=== PATIENT | male | born 1950 | race Caucasian/White ===

== ENCOUNTER 2016-12-01 14:41 | Inpatient (IN) | payer OTHER ==
[2016-12-01 17:01] VITALS: BMI 22.8
--- NOTE | 2016-12-01 18:32 | HP ---
CIWA Score - CIWA Score Nausea/Vomitin Muscle Tremors: 3 Anxiety: 3 Agitation: 3 Paroxysmal Sweats: 2 Orientation: 0-Oriented Tacttile Disturbances: 2-Mild Itch/Numbness/Burn Auditory Disturbances: 2-Mild Harshness/Frighten Visual Disturbances: 2-Mild Sensitivity Headache: 2-Mild CIWA-Ar Total Score: 22 Admission ROS BHS - HPI Chief Complaint: i need help to stop drinking alcohol Allergies/Adverse Reactions: Allergies Allergy/AdvReac Type Severity Reaction Status Date / Time No Known Allergies Allergy Verified 12/01/16 17:48 History of Present Illness: this 65 years old male with alcohol dependence,seeking detox,,never been in detox before fell 2 days ago seen at [facility] ,sent home,receiving medication at [facility],refer for detox depression,anxiety nicotine dependence weight loss contusion of right chest wall and right thigh Exam Limitations: No Limitations - Ebola screening Have you traveled outside of the country in the last 21 days: No Have you had contact with anyone from an Ebola affected area: No Have you been sick,other than usual withdrawal symptoms: No Do you have a fever: No - Review of Systems Constitutional: Loss of Appetite, Malaise, Night Sweats, Changes in sleep, Weakness, Unintentional Wgt. Loss EENT: reports: Nose Congestion Respiratory: reports: No Symptoms reported Cardiac: reports: No Symptoms Reported GI: reports: Nausea, Vomiting, Abdominal cramping : reports: No Symptoms Reported Musculoskeletal: reports: Back Pain, Muscle Pain Integumentary: reports: Dryness Neuro: reports: Headache, Tremors Endocrine: reports: No Symptoms Reported Hematology: reports: No Symptoms Reported Psychiatric: reports: No Sypmtoms Reported, Judgement Intact, Mood/Affect Appropiate, Orientated x3, Depressed (insomnia) Patient History - Patient Medical History Hx Asthma: No Hx Chronic Obstructive Pulmonary Disease (COPD): No Hx Cardiac Disorders: No Hx Hypertension: No Hx Seizures: No Hx Diabetes: No Hx Gastrointestinal Disorders: No Hx Genitourinary Disorders: No Hx Sexually Transmitted Disorders: No Hx Renal Disease (ESRD): No Hx Depression: No Hx Suicide Attempt: No Hx Schizophrenia: No - Patient Surgical History Past Surgical History: No Hx Neurologic Surgery: No Hx Cataract Extraction: No Hx Cardiac Surgery: No Hx Lung Surgery: No Hx Breast Surgery: No Hx Breast Biopsy: No Hx Abdominal Surgery: No Hx Appendectomy: No Hx Cholecystectomy: No Hx Genitourinary Surgery: No Hx Section: No Hx Orthopedic Surgery: No Anesthesia Reaction: No - PPD History Previous Implant?: No Implanted On Prior [facility] Admission?: No - Smoking Cessation Smoking history: Current every day smoker Have you smoked in the past 12 months: Yes Aproximately how many cigarettes per day: 5 Hx Chewing Tobacco Use: No Initiated information on smoking cessation: Yes - Substance & Tx. History Hx Alcohol Use: Yes Hx Substance Use: No Substance Use Type: Alcohol Hx Substance Use Treatment: No - Substances Abused Alcohol Route: Oral Frequency: Daily Amount used: vodka 1 pint Age of first use: 29 Date of Last Use: 11/29/16 Family Disease History - Family Disease History Family History: Denies Admission Physical Exam BHS - Vital Signs Vital Signs: Vital Signs - 24 hr 12/01/16 17:00 Temperature 97.5 F L Pulse Rate 92 H Respiratory 18 Rate Blood Pressure 124/81 - Physical General Appearance: Yes: Moderate Distress, Tremorous, Irritable, Sweating, Anxious HEENTM: Yes: Normocephalic, CORBY, Pharynx Normal Respiratory: Yes: Lungs Clear, Normal Breath Sounds, No Respiratory Distress Neck: Yes: Within Normal Limits, Supple, Trachea in good position Breast: Yes: Within Normal Limits Cardiology: Yes: Within Normal Limits, Regular Rhythm, Regular Rate, S1, S2, Tachycardia S Breath Alcohol Content Breath Alcohol Content: 0 Urine Drug Screen - Results Drug Screen Negative: No Urine Drug Screen Results: BZO-Benzodiazepines
--- NOTE | 2016-12-01 18:45 | HP ---
CIWA Score - CIWA Score Nausea/Vomitin Muscle Tremors: 3 Anxiety: 3 Agitation: 3 Paroxysmal Sweats: 2 Orientation: 0-Oriented Tacttile Disturbances: 2-Mild Itch/Numbness/Burn Auditory Disturbances: 2-Mild Harshness/Frighten Visual Disturbances: 2-Mild Sensitivity Headache: 2-Mild CIWA-Ar Total Score: 22 Admission ROS BHS - HPI Chief Complaint: i am here to stop drinking alcohol Allergies/Adverse Reactions: Allergies Allergy/AdvReac Type Severity Reaction Status Date / Time No Known Allergies Allergy Verified 12/01/16 17:48 History of Present Illness: this 65 years old male with alcohol dependence,seeking detox from alcohol,never have tratment before, fell on 11/29/16 seen in [facility] ,sent home refer for detox no significant period of sobriety Exam Limitations: No Limitations - Ebola screening Have you traveled outside of the country in the last 21 days: No Have you had contact with anyone from an Ebola affected area: No Have you been sick,other than usual withdrawal symptoms: No Do you have a fever: No - Review of Systems Constitutional: Loss of Appetite, Malaise, Night Sweats, Changes in sleep, Weakness, Unintentional Wgt. Loss EENT: reports: Nose Congestion Respiratory: reports: No Symptoms reported Cardiac: reports: Palpitations GI: reports: Nausea, Poor Appetite, Vomiting, Abdominal cramping : reports: No Symptoms Reported Musculoskeletal: reports: Back Pain, Muscle Pain Integumentary: reports: Dryness Neuro: reports: Headache, Tremors Endocrine: reports: No Symptoms Reported Hematology: reports: No Symptoms Reported Psychiatric: reports: No Sypmtoms Reported, Judgement Intact, Mood/Affect Appropiate, Orientated x3 Patient History - Patient Medical History Hx Anemia: No Hx Asthma: No Hx Chronic Obstructive Pulmonary Disease (COPD): No Hx Cancer: No Hx Cardiac Disorders: No Hx Congestive Heart Failure: No Hx Hypertension: No Hx Pacemaker: No HX Cerebrovascular Accident: No Hx Seizures: No Hx Dementia: No Hx Diabetes: No Hx Gastrointestinal Disorders: No Hx Liver Disease: No Hx Genitourinary Disorders: No Hx Sexually Transmitted Disorders: No Hx Renal Disease (ESRD): No Hx Thyroid Disease: No Hx Human Immunodeficiency Virus (HIV): No (never been tested) Hx Hepatitis C: No Hx Depression: No Hx Suicide Attempt: No Hx Bipolar Disorder: No Hx Schizophrenia: No Other Medical History: no suicidal,no homicidal - Patient Surgical History Past Surgical History: No Hx Neurologic Surgery: No Hx Cataract Extraction: No Hx Cardiac Surgery: No Hx Lung Surgery: No Hx Breast Surgery: No Hx Breast Biopsy: No Hx Abdominal Surgery: No Hx Appendectomy: No Hx Cholecystectomy: No Hx Genitourinary Surgery: No Hx Section: No Hx Orthopedic Surgery: No Anesthesia Reaction: No - PPD History Previous Implant?: Yes Documented Results: Negative w/o proof Implanted On Prior [facility] Admission?: No PPD to be Administered?: Yes - Smoking Cessation Smoking history: Current every day smoker Have you smoked in the past 12 months: Yes Aproximately how many cigarettes per day: 5 Hx Chewing Tobacco Use: No Initiated information on smoking cessation: Yes 'Breaking Loose' booklet given: 12/01/16 - Substance & Tx. History Hx Alcohol Use: Yes Hx Substance Use: No Substance Use Type: Alcohol Hx Substance Use Treatment: No - Substances Abused Alcohol Route: Oral Frequency: Daily Amount used: vodka 1 pint Age of first use: 29 Date of Last Use: 11/29/16 Family Disease History - Family Disease History Family History: Denies Admission Physical Exam S - Vital Signs Vital Signs: Vital Signs - 24 hr 12/01/16 17:00 Temperature 97.5 F L Pulse Rate 92 H Respiratory 18 Rate Blood Pressure 124/81 - Physical General Appearance: Yes: Moderate Distress, Tremorous, Irritable, Sweating, Anxious HEENTM: Yes: Normal ENT Inspection, [place], Pharynx Normal Respiratory: Yes: Lungs Clear, Normal Breath Sounds, No Respiratory Distress Neck: Yes: No masses,lesions,Nodules, Supple, Trachea in good position Breast: Yes: Within Normal Limits Cardiology: Yes: Within Normal Limits, Regular Rhythm, Regular Rate, S1, S2 Abdominal: Yes: Normal Bowel Sounds, Non Tender, Flat, Soft Genitourinary: Yes: Within Normal Limits Back: Yes: Muscle Spasm Musculoskeletal: Yes: Back pain, Muscle Pain Extremities: Yes: Normal Range of Motion, Tremors Neurological: Yes: cabin outfitter II-XII NML intact, Fully Oriented, Alert, Motor Strength 5/5 Integumentary: Yes: Dry Lymphatic: Yes: Within Normal Limits - Diagnostic (1) Alcohol dependence with uncomplicated withdrawal Current Visit: Yes Status: Acute (2) Depression Current Visit: Yes Status: Acute (3) Insomnia Current Visit: Yes Status: Acute (4) History of fall Current Visit: Yes Status: Acute (5) Contusion of right chest wall Current Visit: Yes Status: Acute (6) Contusion of right thigh Current Visit: Yes Status: Acute (7) Nicotine dependence Current Visit: Yes Status: Acute (8) Weight loss Current Visit: Yes Status: Acute Cleared for Admission [facility] - Detox or Rehab [facility] Level of Care: Medically Managed Detox Regimen/Protocol: Librium [facility] Breath Alcohol Content Breath Alcohol Content: 0 Urine Drug Screen - Results Drug Screen Negative: No Urine Drug Screen Results: BZO-Benzodiazepines
[2016-12-01] MEDS ORDERED: MAGNESIUM HYDROX 2400MG/30ML ORAL SUSPENSION 30 ML CUP PO PRN (19:04)
[2016-12-01] MEDS ORDERED: guaiFENesin/D-METHORPHAN HB 10 ML UNIT-DOSE CUPS PO PRN (19:04)
[2016-12-01] MEDS ORDERED: MAGNESIUM CITRATE 300 ML BOTTLE PO PRN (19:04)
[2016-12-01] MEDS ORDERED: MAG HYDROX/AL HYDROX/SIMETH 30 ML UNIT-DOSE CUP PO PRN (19:04)
[2016-12-01] MEDS ORDERED: LOPERAMIDE HCL 2 MG CAPSULE PO PRN (19:04)
[2016-12-01] MEDS ORDERED: diphenhydrAMINE HCL 50 MG CAPSULE PO PRN (19:04)
[2016-12-01] MEDS ORDERED: ACETAMINOPHEN 325 MG TABLET (FP) PO PRN (19:04)
[2016-12-01] MEDS ORDERED: chlordiazePOXIDE HCL 25 MG CAPSULE PO PRN (19:04)
[2016-12-01] MEDS ORDERED: IBUPROFEN 400 MG TABLET (FP) PO PRN (19:04)
[2016-12-01] MEDS ORDERED: hydrOXYzine PAMOATE 50 MG CAPSULE (FP) PO PRN (19:04)
[2016-12-01] MEDS ORDERED: chlordiazePOXIDE HCL 25 MG CAPSULE PO ONE (19:04)
[2016-12-01] MEDS ORDERED: P-EPHED 60MG/TRIPROLIDI 2.5MG TABLET PO PRN (19:04)
[2016-12-01] MEDS ORDERED: MENTHOL/PHENOL 1 EACH UD MM PRN (19:04)
[2016-12-01 22:07] LABS: URINE APPEARANCE CLEAR; URINE BILIRUBIN NEGATIVE (NEGATIVE); URINE BLOOD NEGATIVE (NEGATIVE); URINE COLOR YELLOW; URINE GLUCOSE (UA) NEGATIVE (NEGATIVE); URINE KETONE NEGATIVE (NEGATIVE); URINE LEUK ESTERASE NEGATIVE (NEGATIVE); URINE NITRITE NEGATIVE (NEGATIVE); URINE PROTEIN NEGATIVE (NEGATIVE); URINE UROBILINOGEN NEGATIVE mg/dL (0.2-1.0)
[2016-12-01] MEDS: chlordiazePOXIDE HCL 25 MG CAPSULE PO SCH (22:25)
[2016-12-01] MEDS: THIAMINE HCL 100 MG TABLET (FP) PO SCH (22:25)
[2016-12-02] MEDS: chlordiazePOXIDE HCL 25 MG CAPSULE PO SCH ×4 (06:09→22:28)
[2016-12-02 10:00] LABS: MCH 37.2 pg (25.7-33.7); MCHC 34.1 g/dl (32.0-35.9); MEAN CELL VOLUME 109.3 fl (80-96); MEAN PLT VOLUME 7.8 fl (7.5-11.1); PLATELET COUNT 369 K/MM3 (134-434); RDW 12.7 % (11.9-15.9); WHITE BLOOD COUNT 8.6 K/mm3 (4.0-10.0)
[2016-12-02 10:12] LABS: ALBUMIN 3.4 g/dl (3.4-5.0); ANION GAP 8 (8-16); CALCIUM 9.6 mg/dL (8.5-10.1); CO2 29 mmol/L (21-32); CREATININE 1.5 mg/dL (0.7-1.3); GLUCOSE,RANDOM 89 mg/dL (74-106); SGOT/AST 17 U/L (15-37); SGPT/ALT 38 U/L (12-78)
[2016-12-02 10:14] LABS: ALK PHOS 67 U/L (45-117); BILIRUBIN,TOTAL 1.4 mg/dL (0.2-1.0); TOT PROT 6.4 g/dl (6.4-8.2)
[2016-12-02] MEDS: PRENATAL VITAMINS W/ FOLIC ACID TABLET (FP) PO SCH (10:35)
[2016-12-02] MEDS: NICOTINE 14 MG/24 HOURS TOPICAL PATCH TD SCH (10:35)
--- NOTE | 2016-12-02 11:15 | EKG ---
Test Reason : Blood Pressure : / mmHG Vent. Rate : 093 BPM Atrial Rate : 093 BPM P-R Int : 154 ms QRS Dur : 076 ms QT Int : 346 ms P-R-T Axes : 080 064 067 degrees QTc Int : 430 ms SINUS RHYTHM WITH PREMATURE SUPRAVENTRICULAR COMPLEXES SEPTAL INFARCT , AGE UNDETERMINED ABNORMAL ECG NO PREVIOUS ECGS AVAILABLE Confirmed by JATIN GARCIA MD ([id number]) on 12/02/2016 11:15:08 AM Referred By: Confirmed By:JATIN GARCIA MD
--- NOTE | 2016-12-02 11:18 | CONSULT ---
[facility] Psychiatric Consult - Data Date of interview: 12/02/16 Admission source: [facility] Identifying data: This is 65 years old mexican speaking male with no psychiatric hospitalization history intoxiucated with: Alcohol and Nicotine Substance Abuse History: - Smoking Cessation. Smoking history: Current every day smoker. Have you smoked in the past 12 months: Yes. Aproximately how many cigarettes per day: 5. Hx Chewing Tobacco Use: No. Initiated information on smoking cessation: Yes. 'Breaking Loose' booklet given: 12/01/16. - Substance & Tx. History. Hx Alcohol Use: Yes. Hx Substance Use: No. Substance Use Type : Alcohol. Hx Substance Use Treatment: No. - Substances Abused. Alcohol. Route: Oral. Frequency: Daily. Amount used: vodka 1 pint. Age of first use: 29. Date of Last Use: 11/29/16 Medical History: Weight loss, Right chest aria cotussion history Psychiatric History: Denies past psychiatric history Physical/Sexual Abuse/Trauma History: Denies Additional Comment: Observation. Detox Unit Care Protocol Mental Status Exam - Mental Status Exam Alert and Oriented to: Person Cognitive Function: Fair Patient Appearance: Unkempt Mood: Anxious Affect: Flat Patient Behavior: Cooperative Speech Pattern: Delayed Voice Loudness: Normal Thought Process: Circumstantial Thought Disorder: Being Controlled Hallucinations: Denies Suicidal Ideation: Denies Homicidal Ideation: Denies Insight/Judgement: Fair Sleep: Difficulty falling asleep Appetite: Weight loss Muscle strength/Tone: Normal Gait/Station: Normal Additional Comments: Observation. Detox Unit Care Protocol Psychiatric Findings - Problem List ([place] 1, 2,3) (1) Alcohol dependence with uncomplicated withdrawal Current Visit: Yes Status: Acute (2) Depression Current Visit: Yes Status: Acute (3) Nicotine dependence Current Visit: Yes Status: Acute (4) Drug-induced mood disorder Current Visit: Yes Status: Suspected - Initial Treatment Plan Initial Treatment Plan: Observation. Detox Unit Care Protocol
[2016-12-02] MEDS ORDERED: PNEUMOC 13-VAL CONJ-DIP CRM/PF 0.5 ML DISP.SYRIN IM ONE (12:00)
[2016-12-02] MEDS ORDERED: PNEUMOCOCCAL 23 VACCINE 0.5 ML VIAL IM ONE (12:30)
--- NOTE | 2016-12-02 12:53 | PN ---
S CIWA - CIWA Score Nausea/Vomitin Muscle Tremors: 4-Moderate,w/Arms Extend Anxiety: 3 Agitation: 1-Slight > Activity Paroxysmal Sweats: No Perspiration Orientation: 2-Disoriented Date<2 days Tacttile Disturbances: 0-None Auditory Disturbances: 2-Mild Harshness/Frighten Visual Disturbances: 2-Mild Sensitivity Headache: 3-Moderate CIWA-Ar Total Score: 19 BHS Progress Note (SOAP) Subjective: Interrupted sleep, Tremors, H/A, Body Aches. Objective: PT. A & O X 2 (DISORIENTED ABOUT DAY / DATE). NO ACUTE DISTRESS. PT. DENIES CHEST PAIN. 12/02/16 12:50 Vital Signs Temperature 98.0 F 12/02/16 06:36 Pulse Rate 70 12/02/16 06:36 Respiratory Rate 18 12/02/16 06:36 Blood Pressure 148/96 12/02/16 06:36 O2 Sat by Pulse Oximetry (%) Laboratory Tests 12/01/16 12/02/16 12/02/16 21:45 07:00 07:00 WBC 8.6 RBC 3.03 L Hgb 11.3 L Hct 33.2 L MCV 109.3 H MCH 37.2 H MCHC 34.1 RDW 12.7 Plt Count 369 MPV 7.8 Sodium 140 Potassium 4.8 Chloride 103 Carbon Dioxide 29 Anion Gap 8 BUN 28 H Creatinine 1.5 H Creat Clearance w eGFR 46.82 Random Glucose 89 Calcium 9.6 Total Bilirubin 1.4 H AST 17 ALT 38 Alkaline Phosphatase 67 Total Protein 6.4 Albumin 3.4 Urine Color Yellow Urine Appearance Clear Urine pH 5.0 Urine Protein Negative Urine Glucose (UA) Negative Urine Ketones Negative Urine Blood Negative Urine Nitrite Negative Urine Bilirubin Negative Urine Urobilinogen Negative Ur Leukocyte Esterase Negative LABS NOTED. Assessment: 12/02/16 12:51 WITHDRAWAL SYMPTOMS. Plan: CONTINUE DETOX. FEOSOL, 325 MG PO BIDWM. D/C MAGNESIUM-CONTAINING MEDS. REPEAT CBC AND BMP ON 12/04/2016 FOR ABNORMAL ADMISSION VALUES.
[2016-12-02] MEDS: FERROUS SO4 325 MG TABLET (FP) PO SCH (17:18)
[2016-12-02] MEDS: THIAMINE HCL 100 MG TABLET (FP) PO SCH (22:28)
[2016-12-03] MEDS: chlordiazePOXIDE HCL 25 MG CAPSULE PO SCH ×3 (05:30→17:49)
[2016-12-03] MEDS: FERROUS SO4 325 MG TABLET (FP) PO SCH ×2 (07:50→17:49)
[2016-12-03] MEDS: PRENATAL VITAMINS W/ FOLIC ACID TABLET (FP) PO SCH (10:31)
[2016-12-03] MEDS: NICOTINE 14 MG/24 HOURS TOPICAL PATCH TD SCH (10:33)
--- NOTE | 2016-12-03 12:02 | PN ---
S CIWA - CIWA Score Nausea/Vomitin Muscle Tremors: 2 Anxiety: 2 Agitation: 2 Paroxysmal Sweats: 2 Orientation: 0-Oriented Tacttile Disturbances: 2-Mild Itch/Numbness/Burn Auditory Disturbances: 0-None Visual Disturbances: 0-None Headache: 0-None Present CIWA-Ar Total Score: 12 S Progress Note (SOAP) Subjective: interrupted sleep,sweats, lbp Objective: 12/03/16 11:59 Vital Signs Temperature 97.3 F L 12/03/16 10:26 Pulse Rate 71 12/03/16 10:26 Respiratory Rate 18 12/03/16 10:26 Blood Pressure 125/87 12/03/16 10:26 O2 Sat by Pulse Oximetry (%) Laboratory Tests 12/01/16 12/02/16 12/02/16 21:45 07:00 07:00 WBC 8.6 RBC 3.03 L Hgb 11.3 L Hct 33.2 L MCV 109.3 H MCH 37.2 H MCHC 34.1 RDW 12.7 Plt Count 369 MPV 7.8 Sodium 140 Potassium 4.8 Chloride 103 Carbon Dioxide 29 Anion Gap 8 BUN 28 H Creatinine 1.5 H Creat Clearance w eGFR 46.82 Random Glucose 89 Calcium 9.6 Total Bilirubin 1.4 H AST 17 ALT 38 Alkaline Phosphatase 67 Total Protein 6.4 Albumin 3.4 Urine Color Yellow Urine Appearance Clear Urine pH 5.0 Ur Specific [place] 1.025 Urine Protein Negative Urine Glucose (UA) Negative Urine Ketones Negative Urine Blood Negative Urine Nitrite Negative Urine Bilirubin Negative Urine Urobilinogen Negative Ur Leukocyte Esterase Negative RPR Titer 12/02/16 07:00 WBC RBC Hgb Hct MCV MCH MCHC RDW Plt Count MPV Sodium Potassium Chloride Carbon Dioxide Anion Gap BUN Creatinine Creat Clearance w eGFR Random Glucose Calcium Total Bilirubin AST ALT Alkaline Phosphatase Total Protein Albumin Urine Color Urine Appearance Urine pH Ur Specific [place] Urine Protein Urine Glucose (UA) Urine Ketones Urine Blood Urine Nitrite Urine Bilirubin Urine Urobilinogen Ur Leukocyte Esterase RPR Titer Nonreactive pt aox3 in nad ambulating c/o rt back pain Assessment: 12/03/16 12:00 withdrawal sx's lbp Plan: cont. detox increase fluids analgesic balm
[2016-12-03] MEDS: chlordiazePOXIDE 5 MG CAPSULE PO SCH (22:24)
[2016-12-03] MEDS: THIAMINE HCL 100 MG TABLET (FP) PO SCH (22:24)
[2016-12-04] MEDS: chlordiazePOXIDE 5 MG CAPSULE PO SCH ×3 (06:04→17:19)
[2016-12-04] MEDS: FERROUS SO4 325 MG TABLET (FP) PO SCH ×2 (07:44→17:19)
[2016-12-04] MEDS: PRENATAL VITAMINS W/ FOLIC ACID TABLET (FP) PO SCH (10:32)
[2016-12-04] MEDS: NICOTINE 14 MG/24 HOURS TOPICAL PATCH TD SCH (10:34)
[2016-12-04 10:42] LABS: BASOPHIL 0.5 % (0-2.0); EOSINOPHIL 1.5 % (0-4.5); MCH 37.3 pg (25.7-33.7); MCHC 34.5 g/dl (32.0-35.9); MEAN PLT VOLUME 7.8 fl (7.5-11.1); NEUTROPHILS 55.8 % (42.8-82.8); PLATELET COUNT 382 K/MM3 (134-434); RDW 12.6 % (11.9-15.9); WHITE BLOOD COUNT 8.4 K/mm3 (4.0-10.0)
[2016-12-04 11:04] LABS: ANION GAP 9 (8-16); CALCIUM 9.4 mg/dL (8.5-10.1); CO2 27 mmol/L (21-32); CREATININE 1.3 mg/dL (0.7-1.3); GLUCOSE,RANDOM 97 mg/dL (74-106)
[2016-12-04 12:18] LABS: ANISOCYTOSIS 2+; MACROCYTOSIS 1+; PLATELET COMMENT2 NO CLOTTING DETECTED; PLATELET COMMENT3 FEW LARGE PLTS; PLATELET ESTIMATE ADEQUATE (NORMAL)
--- NOTE | 2016-12-04 15:16 | PN ---
S Progress Note (SOAP) Subjective: Interrupted sleep, Body aches, Tremors. Objective: PT. A & O X 3, OBSERVED AMBULATING ON UNIT. NO ACUTE DISTRESS. 12/04/16 15:14 Vital Signs Temperature 98.1 F 12/04/16 10:10 Pulse Rate 89 12/04/16 10:10 Respiratory Rate 18 12/04/16 10:10 Blood Pressure 126/94 12/04/16 10:10 O2 Sat by Pulse Oximetry (%) Laboratory Tests 12/01/16 12/02/16 12/02/16 21:45 07:00 07:00 WBC 8.6 RBC 3.03 L Hgb 11.3 L Hct 33.2 L MCV 109.3 H MCH 37.2 H MCHC 34.1 RDW 12.7 Plt Count 369 MPV 7.8 Neutrophils % Lymphocytes % Monocytes % Eosinophils % Basophils % Platelet Estimate Platelet Comment Anisocytosis Macrocytosis Sodium 140 Potassium 4.8 Chloride 103 Carbon Dioxide 29 Anion Gap 8 BUN 28 H Creatinine 1.5 H Creat Clearance w eGFR 46.82 Random Glucose 89 Calcium 9.6 Total Bilirubin 1.4 H AST 17 ALT 38 Alkaline Phosphatase 67 Total Protein 6.4 Albumin 3.4 Urine Color Yellow Urine Appearance Clear Urine pH 5.0 Ur Specific [place] 1.025 Urine Protein Negative Urine Glucose (UA) Negative Urine Ketones Negative Urine Blood Negative Urine Nitrite Negative Urine Bilirubin Negative Urine Urobilinogen Negative Ur Leukocyte Esterase Negative RPR Titer 12/02/16 12/04/16 12/04/16 07:00 07:50 07:50 WBC 8.4 RBC 3.06 L Hgb 11.4 L Hct 33.0 L MCV 108.0 H MCH 37.3 H MCHC 34.5 RDW 12.6 Plt Count 382 MPV 7.8 Neutrophils % 55.8 Lymphocytes % 27.7 Monocytes % 14.5 H Eosinophils % 1.5 Basophils % 0.5 Platelet Estimate Adequate Platelet Comment No clotting detected Anisocytosis 2+ Macrocytosis 1+ Sodium 138 Potassium 4.9 Chloride 102 Carbon Dioxide 27 Anion Gap 9 BUN 21 H D Creatinine 1.3 Creat Clearance w eGFR Random Glucose 97 Calcium 9.4 Total Bilirubin AST ALT Alkaline Phosphatase Total Protein Albumin Urine Color Urine Appearance Urine pH Ur Specific [place] Urine Protein Urine Glucose (UA) Urine Ketones Urine Blood Urine Nitrite Urine Bilirubin Urine Urobilinogen Ur Leukocyte Esterase RPR Titer Nonreactive LABS NOTED. RESULTS OF BMP AND REPEAT CBC NOTED. 12/04/16 15:17 Assessment: 12/04/16 15:15 WITHDRAWAL SYMPTOMS. Plan: CONTINUE DETOX.
[2016-12-04] MEDS: THIAMINE HCL 100 MG TABLET (FP) PO SCH (22:47)
[2016-12-04] MEDS: chlordiazePOXIDE HCL 10 MG CAPSULE PO SCH (22:47)
[2016-12-05] MEDS: chlordiazePOXIDE HCL 10 MG CAPSULE PO SCH (05:46)
[2016-12-05] MEDS: FERROUS SO4 325 MG TABLET (FP) PO SCH (07:51)
[2016-12-05 09:22] VITALS: BP 120/87; PULSE 104; TEMP 98.1
--- NOTE | 2016-12-05 13:45 | DS ---
[facility] Detox Discharge Summary Admission Date: 12/01/16 Discharge Date: 12/05/16 - History Present History: Alcohol Dependence Pertinent Past History: Anemia - Physical Exam Results Vital Signs: Vital Signs Temperature 98.1 F 12/05/16 09:22 Pulse Rate 104 H 12/05/16 09:22 Respiratory Rate 18 12/05/16 09:22 Blood Pressure 120/87 12/05/16 09:22 O2 Sat by Pulse Oximetry (%) Pertinent Admission Physical Exam Findings: Withdrawal symptoms Laboratory Tests 12/01/16 12/02/16 12/02/16 21:45 07:00 07:00 WBC 8.6 RBC 3.03 L Hgb 11.3 L Hct 33.2 L MCV 109.3 H MCH 37.2 H MCHC 34.1 RDW 12.7 Plt Count 369 MPV 7.8 Neutrophils % Lymphocytes % Monocytes % Eosinophils % Basophils % Platelet Estimate Platelet Comment Anisocytosis Macrocytosis Sodium 140 Potassium 4.8 Chloride 103 Carbon Dioxide 29 Anion Gap 8 BUN 28 H Creatinine 1.5 H Creat Clearance w eGFR 46.82 Random Glucose 89 Calcium 9.6 Total Bilirubin 1.4 H AST 17 ALT 38 Alkaline Phosphatase 67 Total Protein 6.4 Albumin 3.4 Urine Color Yellow Urine Appearance Clear Urine pH 5.0 Ur Specific [place] 1.025 Urine Protein Negative Urine Glucose (UA) Negative Urine Ketones Negative Urine Blood Negative Urine Nitrite Negative Urine Bilirubin Negative Urine Urobilinogen Negative Ur Leukocyte Esterase Negative RPR Titer 12/02/16 12/04/16 12/04/16 07:00 07:50 07:50 WBC 8.4 RBC 3.06 L Hgb 11.4 L Hct 33.0 L MCV 108.0 H MCH 37.3 H MCHC 34.5 RDW 12.6 Plt Count 382 MPV 7.8 Neutrophils % 55.8 Lymphocytes % 27.7 Monocytes % 14.5 H Eosinophils % 1.5 Basophils % 0.5 Platelet Estimate Adequate Platelet Comment No clotting detected Anisocytosis 2+ Macrocytosis 1+ Sodium 138 Potassium 4.9 Chloride 102 Carbon Dioxide 27 Anion Gap 9 BUN 21 H D Creatinine 1.3 Creat Clearance w eGFR Random Glucose 97 Calcium 9.4 Total Bilirubin AST ALT Alkaline Phosphatase Total Protein Albumin Urine Color Urine Appearance Urine pH Ur Specific [place] Urine Protein Urine Glucose (UA) Urine Ketones Urine Blood Urine Nitrite Urine Bilirubin Urine Urobilinogen Ur Leukocyte Esterase RPR Titer Nonreactive Labs noted: BUN 21 (was 28), serum creatinine 1.3 (was 1.5): noted with SULAIMAN: encouraged to drink lots of water, f/u with PCP in 1-2 weeks for monitoring and for all medical problems - Treatment Hospital Course: Detox Protocol Followed, Detoxed Safely, Responded well, Discharged Condition Good - Medication Discharge Medications: Ambulatory Orders NK [No Known Home Medication] 12/01/16 - Diagnosis (1) Alcohol dependence with uncomplicated withdrawal Status: Acute (2) Nicotine dependence Status: Chronic (3) Anemia Status: Chronic (4) Acute kidney injury Status: Acute - AMA Did Patient Leave Against Medical Advice: No
== END 2016-12-05 09:56 | disposition home or self-care (01) | DRG 775 ==
LOC: YASAS 14:41 → Y3N 18:52
PROVIDERS: ADMIT Internal Medicine; ATTEND Internal Medicine
PROC: HZ2ZZZZ Detoxification Services for Substance Abuse Treatment (ICD-10-PCS; principal; 2016-12-01)
DX: F10.230 Alcohol dependence with withdrawal, uncomplicated (principal); F17.210 Nicotine dependence, cigarettes, uncomplicated; F32.9 Major depressive disorder, single episode, unspecified; F19.24 Other psychoactive substance dependence with psychoactive substance-induced mood disorder; D64.9 Anemia, unspecified; N17.9 Acute kidney failure, unspecified; M54.5 Low back pain; G47.00 Insomnia, unspecified; Z87.898 Personal history of other specified conditions; S20.211D Contusion of right front wall of thorax, subsequent encounter; S70.11XD Contusion of right thigh, subsequent encounter; W19.XXXD Unspecified fall, subsequent encounter; Z91.81 History of falling
CPT/HCPCS: 36415; 80048; 80053; 81003; 85025; 85027; 86593; 90732; 93005; 93010; G0009